=== PATIENT | female | born 1975 | race Two or more races ===

== ENCOUNTER 2020-08-28 18:26 | Emergency (ER) | payer MEDICARE, OTHER ==
[~2020-08-28] VITALS: Ht 162.6 cm; Wt 127.0 kg
== END 2020-08-28 18:32 ==
LOC: EDBD 18:26 → ER 18:26 → EDUNIT# 18:26 → ER 18:32
DX: I46.9 Cardiac arrest, cause unspecified (principal); J45.909 Unspecified asthma, uncomplicated
CPT/HCPCS: 92950